=== PATIENT | female | born 1945 | race Native Hawaiian/Other Pacific Islander ===

== ENCOUNTER → 2016-07-29 | Day surgery (SDC) | payer MEDICARE, MEDICAID ==
[~2016-07-29] VITALS: Ht 154.9 cm; Wt 51.5 kg
[~2016-07-29] MED LIST: AMLO10 PO; ASPI-110 PO; ATOR40TA16 PO; CALCTAB70 PO; COQ-150C; DONE10TA7 PO; EPINEPHrine-Lidocaine/BSS (PF/SF) 4-120 mg/16 mL OPTH SYR RIGHT EYE ONE; GLUCTAB PO; HYALURONIDASE/LIDOCAINE/EPINEPHRINE/BUPIVACAINE 4.5 ML SYR RIGHT EYE ONE; HYALURONIDASE/LIDOCAINE/EPINEPHRINE/BUPIVACAINE 6 ML SYR RIGHT EYE ONE; LATA.005%O EACH EYE; LIDOCAINE HCL 1% 30 ML VIAL ONE; LOSA50TA PO; MIDAZOLAM HCL 2 MG/2 ML VIAL ONE; MULT-135 PO; NITR0.4S SL; OXYB10TA PO; PROPARACAINE HCL 0.5% OPHT SOLN 15 ML BTL RIGHT EYE ONE; PROPOFOL 200 MG/20 ML AMP ONE; QUIN1TAB11 PO; SODIUM CHLORID 0.9% 500 ML INJ 500 ML ONE; TOBRAMYCIN/DEXAMETHASONE OPTH OINT 3.5 GM TUBE ONE
[2016-07-29 07:40] VITALS: BP 147/92; PULSE 68; RESP 12; TEMP 98.3; O2SAT 95
[2016-07-29 07:45] VITALS: PULSE 68
[2016-07-29] MEDS: PHENYLEPHRINE HCL 10% OPTH SOLN 5 ML BTL RIGHT EYE SCH ×4 (07:55→08:10)
[2016-07-29] MEDS: TROPICAMIDE 1% OPHT SOLN 15 ML BTL RIGHT EYE SCH ×4 (07:55→08:10)
[2016-07-29] MEDS: FLURBIPROFEN 0.03% OPHT SOLN 2.5 ML BTL RIGHT EYE SCH ×4 (07:55→08:10)
[2016-07-29] MEDS: CYCLOPENTOLATE HCL 1% OPHT SOLN 2 ML BTL RIGHT EYE SCH ×4 (07:55→08:10)
[2016-07-29 09:03] VITALS: PULSE 82
[2016-07-29 10:50] VITALS: BP 140/90; PULSE 76; RESP 16; TEMP 98; O2SAT 95
--- NOTE | 2016-07-29 23:26 | MP ---
cc: KAYODE SALVADOR M.D. [facility] #[id number] DATE OF SURGERY 07/29/16 POSTOPERATIVE DIAGNOSIS: Visually significant cataract right eye. OPERATION: Phacoemulsification with posterior chamber lens implantation, right eye. SURGEON: Kayode Salvador MD ANESTHESIA: Retrobulbar with MAC. COMPLICATIONS: None. PROCEDURE: After informed consent was obtained, the patient was brought into the operative suite and placed on appropriate monitors by the Anesthesia Service. The patient had received a prior retrobulbar injection of local anesthetic by the Anesthesia Service in the holding area. The patient's operative eye was then prepped and draped in the usual sterile fashion. A wire lid speculum was placed. A paracentesis incision was made in the peripheral cornea with a 1 mm ratna keratome. The anterior chamber was filled with viscoelastic. The anterior chamber was then entered through a stepped, clear corneal incision using a sharp 3 mm ratna keratome. A circular tear capsulorrhexis was then made with a bent needle cystitome. Following hydrodissection of the lens nucleus with balanced saline, phaco-emulsification of the nucleus was performed using a modified chopping technique. The remaining cortex was removed with irrigation/aspiration. The prior two procedures were both performed using the handpieces of the [employer] phaco unit. The capsular bag was then filled with viscoelastic. The intraocular lens was then injected into the capsular bag and positioned. The type of intraocular lens and its power can be found elsewhere in this chart. The remaining viscoelastic was then removed from the anterior chamber with the IA handpiece. The anterior chamber was reformed with balanced saline. The wound was then closed securely with stromal hydration. It was found to be watertight to an intraocular pressure of at least 30 mmHg by palpation. A small amount of balanced salt solution was then removed through the paracentesis site and the intraocular pressure at the end of the case was approximately 20 by palpation. All drapes were then removed. TobraDex ointment was then placed in the eye, which was closed beneath a semi-pressure patch dressing. The patient tolerated this procedure well and left the operating room awake and alert. The patient is to follow-up in my office in the morning. MD EL Jj/ /10:05 AM /11:20 PM
== END | disposition home or self-care (01) ==
LOC: CSDC 07:00
PROVIDERS: ATTEND Optometrist Occupational Vision
DX: H25.11 Age-related nuclear cataract, right eye (principal)
CPT/HCPCS: 00142; 66984; J2250; J7040; V2632

== ENCOUNTER 2017-10-21 11:35 | Observation (INO) | payer MEDICARE, MEDICAID ==
[2017-10-21] VITALS (10 sets, daily range): BP systolic 131–179; BP diastolic 74–85; PULSE 63–87; RESP 16–19; TEMP 98–98.7; O2SAT 94–99
[~2017-10-21] VITALS: Ht 154.9 cm; Wt 56.0 kg
[~2017-10-21 11:35] MED LIST changes: -ASPI-110 PO; +ASPI1TAB57 PO; -DONE10TA7 PO; -EPINEPHrine-Lidocaine/BSS (PF/SF) 4-120 mg/16 mL OPTH SYR RIGHT EYE ONE; -HYALURONIDASE/LIDOCAINE/EPINEPHRINE/BUPIVACAINE 4.5 ML SYR RIGHT EYE ONE; -HYALURONIDASE/LIDOCAINE/EPINEPHRINE/BUPIVACAINE 6 ML SYR RIGHT EYE ONE; -LIDOCAINE HCL 1% 30 ML VIAL ONE; -MIDAZOLAM HCL 2 MG/2 ML VIAL ONE; -PROPARACAINE HCL 0.5% OPHT SOLN 15 ML BTL RIGHT EYE ONE; -PROPOFOL 200 MG/20 ML AMP ONE; -SODIUM CHLORID 0.9% 500 ML INJ 500 ML ONE; -TOBRAMYCIN/DEXAMETHASONE OPTH OINT 3.5 GM TUBE ONE
--- NOTE | 2017-10-21 11:52 | PD ---
HPI Chief Complaint: Chest Pain Time Seen by Provider: 11:48 Travel History International Travel<30 days: No Contact w/Intl Traveler<30days: No History of Present Illness HPI 71-year-old Kisw[place] woman with history of hypertension, possible previous HI, presents to the ER today brought in by EMS, daughter states that she started complaining of chest discomfort radiating to the jaw area, numbness around the lips and hands, all starting this morning after her was in the CAT scan getting evaluated. She was given several doses of aspirin and states that her chest pain has now resolved, she states that she feels some chest discomfort still but is not able to radiate. She reports shortness of breath as well. Modifying Factors: None Associated Signs & Symptoms: Chest discomfort, paresthesias in the lips and hands Risk Factors: Cardiac history PFSH Past Medical History Arthritis: Yes Asthma: No Autoimmune Disease: No Heart Rhythm Problems: No Cancer: Yes (BREAST CANCER) Cardiovascular Problems: Yes (HI 20+ YEARS) High Cholesterol: Yes Chest Pain: Yes Congestive Heart Failure: No COPD: No Cerebrovascular Accident: Yes (mild stroke 1992/1993 with residual) Diabetes: Yes (TYPE 2) Endocrine: No GERD: No Genitourinary: Yes (OVER ACTIVE BLADDER) Headaches: No Hepatitis: No Hiatal Hernia: No Hypertension: Yes Immune Disorder: No Musculoskeletal: Yes (ARTHRITIS) Psychiatric: No Reproductive: Yes (FIBROIDS) Respiratory: No Myocardial Infarction: Yes (HI 1994) Seizures: No Sleep Apnea: No Thyroid Disease: No Ulcer: No Past Surgical History Abdominal Surgery: No AICD: No Cardiac Surgery: No Ear Surgery: No Endocrine Surgery: No Eye Surgery: No Genitourinary Surgery: No Gynecologic Surgery: No Joint Replacement: No Oral Surgery: No Pacemaker: No Thoracic Surgery: Yes (left moduified radical mastectomy) Social History Alcohol Use: No Tobacco Use: No Substance Use: No Allergies-Medications (Allergen,Severity, Reaction): Coded Allergies: clonidine (Unverified Allergy, Severe, SEVERE HYPOTENSION, 10/21/17) hydrocodone (Unverified Allergy, Severe, Rash, 10/21/17) Reported Meds & Prescriptions Reported Meds & Active Scripts Active Reported Tradjenta (Linagliptin) 5 Mg Tab 5 Mg PO DAILY Accupril (Quinapril HCl) 20 Mg Tab 20 Mg PO BID Metformin ER (Metformin HCl) 500 Mg Nancy 500 Mg PO BID With evening meal Multiple Vitamin 1 Tab 1 Tab PO DAILY Labetalol (Labetalol HCl) 100 Mg Tab 100 Mg PO BID Calcium 500 +D (Calcium Carbonate-Cholecalciferol) 500-400 Mg-Unit Tab 1 Tab PO BID Coq-10 Tr (Coenzyme Q10 (Ubidecarenone)) 100 Mg Cap 200 Mg PO DAILY Xalatan Opth Drops (Latanoprost) 0.005% Drops 1 Drop EACH EYE HS Oxybutynin ER 24 HR (Oxybutynin Chloride) 10 Mg Tab 10 Mg PO DAILY Nitrostat SL (Nitroglycerin) 0.4 Mg Subl 0.4 Mg SL Q 5 MIN X 3 FOR CP 1 tablet under the tongue as needed for chest pain. Repeat every 5 minutes for a total of 3 DOSES or call 911 if NO relief. Atorvastatin (Atorvastatin Calcium) 40 Mg Tab 40 Mg PO HS Aspirin 81 (Aspirin) 81 Mg Tabdr 81 Mg PO DAILY Norvasc (Amlodipine Besylate) 10 Mg Tab 10 Mg PO DAILY Review of Systems Except as stated in HPI: all other systems reviewed are Neg Physical Exam Narrative GENERAL: Well-developed elderly [place] woman currently in mild distress. Awake and oriented 3. She is keeping her eyes closed, not looking at me during exam, but responding normally to her daughter who is translating. SKIN: Focused skin assessment warm/dry. HEAD: Atraumatic. Normocephalic. EYES: Pupils equal and round. No scleral icterus. No injection or drainage. ENT: No nasal bleeding or discharge. Mucous membranes pink and moist. NECK: Trachea midline. No JVD. CARDIOVASCULAR: Regular rate and rhythm. No murmur appreciated. Pulses are present and equal bilaterally. RESPIRATORY: No accessory muscle use. Clear to auscultation. Breath sounds equal bilaterally. GASTROINTESTINAL: Abdomen soft, non-tender, nondistended. Hepatic and splenic margins not palpable. MUSCULOSKELETAL: No obvious deformities. No clubbing. No cyanosis. No edema. NEUROLOGICAL: Awake and alert. No obvious cranial nerve deficits. Motor grossly within normal limits. Normal speech. PSYCHIATRIC: Appropriate mood and affect; insight and judgment normal. Data Data Last Documented VS Vital Signs Date Time Temp Pulse Resp B/P (MAP) Pulse Ox O2 Delivery O2 Flow Rate FiO2 10/21/17 12:45 65 10/21/17 12:45 18 99 Nasal Cannula 2.00 10/21/17 11:39 98.7 Orders Orders Electrocardiogram (10/21/17 ) Electrocardiogram (10/21/17 11:48) Ckmb (Isoenzyme) Profile (10/21/17 11:48) Complete Blood Count With Diff (10/21/17 11:48) Comprehensive Metabolic Panel (10/21/17 11:48) Magnesium (Mg) (10/21/17 11:48) Prothrombin Time / Inr (Pt) (10/21/17 11:48) Act Partial Throm Time (Ptt) (10/21/17 11:48) Troponin I (10/21/17 11:48) Ecg Monitoring (10/21/17 11:48) Bilateral Bp Monitoring (10/21/17 11:48) Iv Access Insert/Monitor (10/21/17 11:48) Oximetry (10/21/17 11:48) Oxygen Administration (10/21/17 11:48) Sodium Chloride 0.9% Flush (Ns Flush) (10/21/17 12:00) Chest, Pa & Lat (10/21/17 11:48) Admit Order (Ed Use Only) (10/21/17 13:11) Labs Laboratory Tests Test 10/21/17 11:50 White Blood Count 5.5 TH/MM3 Red Blood Count 4.27 MIL/MM3 Hemoglobin 12.1 GM/DL Hematocrit 36.1 % Mean Corpuscular Volume 84.7 FL Mean Corpuscular Hemoglobin 28.4 PG Mean Corpuscular Hemoglobin Concent 33.6 % Red Cell Distribution Width 14.8 % Platelet Count 320 TH/MM3 Mean Platelet Volume 9.0 FL Neutrophils (%) (Auto) 62.4 % Lymphocytes (%) (Auto) 25.7 % Monocytes (%) (Auto) 9.0 % Eosinophils (%) (Auto) 2.3 % Basophils (%) (Auto) 0.6 % Neutrophils # (Auto) 3.5 TH/MM3 Lymphocytes # (Auto) 1.4 TH/MM3 Monocytes # (Auto) 0.5 TH/MM3 Eosinophils # (Auto) 0.1 TH/MM3 Basophils # (Auto) 0.0 TH/MM3 CBC Comment DIFF FINAL Differential Comment Prothrombin Time 10.2 SEC Prothromb Time International Ratio 1.0 RATIO Activated Partial Thromboplast Time 21.3 SEC Blood Urea Nitrogen 28 MG/DL Creatinine 1.67 MG/DL Random Glucose 275 MG/DL Total Protein 6.2 GM/DL Albumin 2.6 GM/DL Calcium Level 8.5 MG/DL Magnesium Level 1.9 MG/DL Alkaline Phosphatase 69 U/L Aspartate Amino Transf (AST/SGOT) 26 U/L Alanine Aminotransferase (ALT/SGPT) 31 U/L Total Bilirubin 0.3 MG/DL Sodium Level 138 MEQ/L Potassium Level 3.8 MEQ/L Chloride Level 102 MEQ/L Carbon Dioxide Level 27.3 MEQ/L Anion Gap 9 MEQ/L Estimat Glomerular Filtration Rate 30 ML/MIN Total Creatine Kinase 84 U/L Troponin I LESS THAN 0.02 NG/ML MDM Medical Decision Making Medical Screen Exam Complete: Yes Emergency Medical Condition: Yes Medical Record Reviewed: Yes Interpretation(s) EKG shows NSR, no ST elevation or depression, and no arrhythmias. No significant T-wave inversions. Laboratory Tests Test 10/21/17 11:50 Monocytes (%) (Auto) 9.0 % (0.0-8.0) Activated Partial Thromboplast Time 21.3 SEC (24.3-30.1) Blood Urea Nitrogen 28 MG/DL (7-18) Creatinine 1.67 MG/DL (0.50-1.00) Random Glucose 275 MG/DL (74-106) Total Protein 6.2 GM/DL (6.4-8.2) Albumin 2.6 GM/DL (3.4-5.0) Estimat Glomerular Filtration Rate 30 ML/MIN (>89) Troponin I LESS THAN 0.02 NG/ML Last 24 hours Impressions Chest X-Ray 10/21/17 1148 Signed Impressions: Service Date/Time: Saturday, October 21, 2017 12:07 - CONCLUSION: Trace atelectasis of both bases. Otherwise negative. Emory Bettencourt MD Differential Diagnosis Dysrhythmias versus anxiety attack versus ACS versus metabolic issues versus dehydration Narrative Course EKG did not show any signs of acute ST changes. Cardiac enzymes are negative. Chest discomfort has subsided. At this point, my plan would be to admit the patient to chest pain center for further evaluation. Diagnosis Primary Impression: Chest pain Admitting Information Admitting Physician Requests: Admit Karo Reyes MD Oct 21, 2017 11:52
[2017-10-21] MEDS ORDERED: SODIUM CHLORIDE 0.9% FLUSH 10 ML FLUSH IVF PRN (12:00)
--- NOTE | 2017-10-21 12:27 | RADRPT ---
EXAM DATE/TIME: 10/21/2017 12:07 [facility] COMPARISON: No previous studies available for comparison. INDICATIONS : Pt has been vomiting and light headed. MEDICAL HISTORY : Carcinoma, breast. SURGICAL HISTORY : None. ENCOUNTER: Initial ACUITY: 1 day PAIN SCORE: 2/10 LOCATION: Bilateral chest FINDINGS: Trace atelectasis in both bases. No pneumonia demonstrated. No pleural effusion or pneumothorax. Surgical changes of the left breast noted. CONCLUSION: Trace atelectasis of both bases. Otherwise negative. Emory Bettencourt MD on October 21, 2017 at 12:25 Board Certified Radiologist. This report was verified electronically.
[2017-10-21] MEDS ORDERED: LABE100T2 PO (12:40)
[2017-10-21] MEDS ORDERED: CALC1TAB12 PO (12:40)
[2017-10-21] MEDS ORDERED: MULTTAB67 PO (12:40)
[2017-10-21] MEDS ORDERED: COQ-100C5 PO (12:40)
[2017-10-21 12:42] LABS: AUTOMATED NEUTROPHIL # 3.5 TH/MM3 (1.8-7.7); BASOPHIL % 0.6 % (0.0-2.0); EOSINOPHIL # 0.1 TH/MM3 (0-0.4); EOSINOPHIL % 2.3 % (0.0-4.0); HEMATOCRIT 36.1 % (35.0-46.0); HEMOGLOBIN 12.1 GM/DL (11.6-15.3); LYMPH % 25.7 % (9.0-44.0); LYMPHOCYTE # 1.4 TH/MM3 (1.0-4.8); MEAN CELL VOLUME 84.7 FL (80.0-100.0); MEAN CORPUSCULAR HEMOGLOBIN 28.4 PG (27.0-34.0); MEAN CORPUSCULAR HGB CONC 33.6 % (32.0-36.0); MONOCYTE # 0.5 TH/MM3 (0-0.9); NEUT % 62.4 % (16.0-70.0); PLATELET COUNT 320 TH/MM3 (150-450); RED BLOOD COUNT 4.27 MIL/MM3 (4.00-5.30); RED CELL DISTRIBUTION WIDTH 14.8 % (11.6-17.2); WHITE BLOOD COUNT 5.5 TH/MM3 (4.0-11.0)
[2017-10-21] MEDS ORDERED: METF500T4 PO (12:42)
[2017-10-21] MEDS ORDERED: ACCU20TA3 PO (12:42)
[2017-10-21] MEDS ORDERED: TRAD5TAB PO (12:43)
[2017-10-21 12:53] LABS: PROTHROMBIN TIME - PATIENT 10.2 SEC (9.8-11.6)
[2017-10-21 12:59] LABS: ALBUMIN 2.6 GM/DL (3.4-5.0); ALT (GPT) 31 U/L (10-53); AST (GOT) 26 U/L (15-37); BICARBONATE 27.3 MEQ/L (21.0-32.0); BLOOD UREA NITROGEN 28 MG/DL (7-18); CALCIUM 8.5 MG/DL (8.5-10.1); CHLORIDE 102 MEQ/L (98-107); CREATININE 1.67 MG/DL (0.50-1.00); GLOMERULAR FILTRATION RATE 30 ML/MIN (>89); GLUCOSE,RANDOM 275 MG/DL (74-106); MAGNESIUM 1.9 MG/DL (1.5-2.5); SODIUM (NA) 138 MEQ/L (136-145)
[2017-10-21 13:02] LABS: ALKALINE PHOSPHATASE 69 U/L (45-117); TOTAL BILIRUBIN ADULT 0.3 MG/DL (0.2-1.0); TOTAL PROTEIN 6.2 GM/DL (6.4-8.2); TROPONIN I LESS THAN 0.02 NG/ML (0.02-0.05)
[2017-10-21] MEDS ORDERED: AMLO10 PO (14:30)
[2017-10-21] MEDS ORDERED: ACETAMINOPHEN 500 MG CPLT PO PRN (14:45)
[2017-10-21] MEDS ORDERED: ONDANSETRON HCL 4 MG/2 ML VIAL IV PUSH PRN (14:45)
--- NOTE | 2017-10-21 15:05 | EKG ---
Date Performed: 10/21/2017 Time Performed: 11:41:02 PTAGE: 71 years EKG: Sinus rhythm MODERATE T-WAVE ABNORMALITY, CONSIDER ANTERIOR ISCHEMIA ABNORMAL ECG Nonspecific anterior apical T-w ave changes PREVIOUS TRACING : 01/26/2005 23.29 DOCTOR: Henry Lee Interpretating Date/Time 10/21/2017 15:04:13
--- NOTE | 2017-10-21 15:25 | HHI.HP ---
[facility] Primary Care Physician Alberto Booth MD Chief Complaint Chest pain History of Present Illness This is a 71-year-old female the presents to ED with family to be evaluated for chest discomfort. Patient does not speak Niuean but request that her daughter translate for her. Patient developed a heaviness throughout the entire chest this morning. She was nauseous and had 2 episodes of emesis and also was short of breath. Her daughter tried to help her walk back to the bedroom but the patient became very weak and she had to help her to the floor. Patient did not fall, she was helped to the floor slowly. At that time her daughter gave her a couple aspirin she started to feel better. 911 was already in route. While in the ambulance the discomfort recurred and states that she was given 2 more aspirin which also helped with the discomfort. She states that she was very short of breath, very weak, and nauseous. She has history of CAD. She had a cardiac catheterization January [address] Cheng that revealed distal circumflex having a 40-50% area of stenosis, RCA had multiple areas of 40% areas of stenosis, and LAD having mild but diffuse disease. Cannot recall having recent stress testing and is not currently followed by grain picker. Patient also has history of chronic renal insufficiency and follows Dr. Grewal. Currently no chest discomfort but is complaining of lower abdominal pain at this time. (Mauricio Morales) Review of Systems General: Patient denies fevers, chills, and recent travel. HEENT: Patient denies headache, sore throat, difficulty swallowing. Cardiovascular: Has the chest discomfort as mentioned above. Denies sensation of heart beating rapidly or irregularly. No syncope. Denies diaphoresis. Respiratory: She was short of breath. Denies shortness of breath or inspirational chest discomfort. Denies coughing wheezing or hemoptysis. GI: She was nauseous with 2 episodes of emesis that was nonbloody and nonbilious. She is now complaining of lower abdominal pain. Patient denies hematemesis, diarrhea, constipation, bloody stools. Musculoskeletal: Patient denies joint pain or edema. Denies calf pain or edema. Neurovascular: Patient denies numbness, tingling, weakness in extremities. Denies headache. Endocrine: Denies polyuria and polydipsia. Hematologic: Denies easy bruising. Skin: Denies rash or itching. (Mauricio Morales) Past Family Social History Allergies: Coded Allergies: clonidine (Unverified Allergy, Severe, SEVERE HYPOTENSION, 10/21/17) hydrocodone (Unverified Allergy, Severe, Rash, 10/21/17) Past Medical History Hyperlipidemia, hypertension, diabetes, CAD, Farrell's esophagus, breast cancer with mastectomy 15 years ago as well as 5 years ago. Questionable CVA 1990. Chronic renal insufficiency. 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 Reported Medications Reported Meds & Active Scripts Active Norvasc (Amlodipine Besylate) 10 Mg Tab 10 Mg PO DAILY Reported Tradjenta (Linagliptin) 5 Mg Tab 5 Mg PO DAILY Accupril (Quinapril HCl) 20 Mg Tab 20 Mg PO BID Metformin ER (Metformin HCl) 500 Mg Nancy 500 Mg PO BID With evening meal Multiple Vitamin 1 Tab 1 Tab PO DAILY Labetalol (Labetalol HCl) 100 Mg Tab 100 Mg PO BID Calcium 500 +D (Calcium Carbonate-Cholecalciferol) 500-400 Mg-Unit Tab 1 Tab PO BID Coq-10 Tr (Coenzyme Q10 (Ubidecarenone)) 100 Mg Cap 200 Mg PO DAILY Xalatan Opth Drops (Latanoprost) 0.005% Drops 1 Drop EACH EYE HS Oxybutynin ER 24 HR (Oxybutynin Chloride) 10 Mg Tab 10 Mg PO DAILY Nitrostat SL (Nitroglycerin) 0.4 Mg Subl 0.4 Mg SL Q 5 MIN X 3 FOR CP 1 tablet under the tongue as needed for chest pain. Repeat every 5 minutes for a total of 3 DOSES or call 911 if NO relief. Atorvastatin (Atorvastatin Calcium) 40 Mg Tab 40 Mg PO HS Aspirin 81 (Aspirin) 81 Mg Tabdr 81 Mg PO DAILY Active Ordered Medications Current Medications Medications (Trade) Dose Ordered Sig/Elen Route Start Time Stop Time Status Last Admin (NS Flush) 2 ml UNSCH PRN IVF 10/21/17 12:00 10/21/17 12:12 (Lipitor) 40 mg HS PO 10/21/17 21:00 (Trandate) 100 mg BID PO 10/21/17 21:00 (Xalatan 0.005% Opth Soln) 1 drop HS EACH EYE 10/21/17 21:00 (Prinivil) 20 mg BID PO 10/21/17 21:00 (Theragran) 1 tab DAILY PO 10/22/17 09:00 (Detrol La) 4 mg DAILY PO 10/22/17 09:00 (Norvasc) 10 mg DAILY PO 10/21/17 14:00 (Tylenol) 500 mg Q4H PRN PO 10/21/17 14:45 (Zofran Inj) 4 mg Q6H PRN IV PUSH 10/21/17 14:45 (Aspirin) 325 mg DAILY PO 10/22/17 09:00 Family History There is family CAD. Social History Non-smoker. Denies alcohol or illicit drug use. (Mauricio Morales) Physical Exam Vital Signs Vital Signs Date Time Temp Pulse Resp B/P (MAP) Pulse Ox O2 Delivery O2 Flow Rate FiO2 10/21/17 14:00 68 18 175/84 (114) 99 Nasal Cannula 2.00 10/21/17 13:00 64 18 131/78 (95) 98 Nasal Cannula 2.00 10/21/17 12:45 65 10/21/17 12:45 65 18 156/74 (101) 99 Nasal Cannula 2.00 10/21/17 11:39 98 Nasal Cannula 2.00 10/21/17 11:39 63 164/74 (104) 10/21/17 11:39 98.7 63 17 164/74 (104) 98 10/21/17 11:39 99 Nasal Cannula 2.00 Laboratory Laboratory Tests Test 10/21/17 11:50 White Blood Count 5.5 Red Blood Count 4.27 Hemoglobin 12.1 Hematocrit 36.1 Mean Corpuscular Volume 84.7 Mean Corpuscular Hemoglobin 28.4 Mean Corpuscular Hemoglobin Concent 33.6 Red Cell Distribution Width 14.8 Platelet Count 320 Mean Platelet Volume 9.0 Neutrophils (%) (Auto) 62.4 Lymphocytes (%) (Auto) 25.7 Monocytes (%) (Auto) 9.0 Eosinophils (%) (Auto) 2.3 Basophils (%) (Auto) 0.6 Neutrophils # (Auto) 3.5 Lymphocytes # (Auto) 1.4 Monocytes # (Auto) 0.5 Eosinophils # (Auto) 0.1 Basophils # (Auto) 0.0 CBC Comment DIFF FINAL Differential Comment Prothrombin Time 10.2 Prothromb Time International Ratio 1.0 Activated Partial Thromboplast Time 21.3 Blood Urea Nitrogen 28 Creatinine 1.67 Random Glucose 275 Total Protein 6.2 Albumin 2.6 Calcium Level 8.5 Magnesium Level 1.9 Alkaline Phosphatase 69 Aspartate Amino Transf (AST/SGOT) 26 Alanine Aminotransferase (ALT/SGPT) 31 Total Bilirubin 0.3 Sodium Level 138 Potassium Level 3.8 Chloride Level 102 Carbon Dioxide Level 27.3 Anion Gap 9 Estimat Glomerular Filtration Rate 30 Total Creatine Kinase 84 Troponin I LESS THAN 0.02 (Mauricio Morales) Physical Exam Well-nourished well-developed lady resting comfortably but expressing concern about pain in her lower abdomen Skin is warm and dry with good turgor Head normocephalic atraumatic Eyes pupils are dense equal with bilateral IOLs and distortion of the left pupil. Extraocular movements are intact and there are no injection in the conjunctiva Mouth mucous membranes are moist and well papillated no lesions Neck is supple with no JVD masses nodes or bruits Chest reveals significantly diminished breath sounds bilaterally but no rales wheezes or rhonchi The abdomen is slightly protuberant hepatospleno margins are not identified in the abdomen is tender over the suprapubic area but with no guarding or rebound Extremities reveal no clubbing cyanosis or edema Neurologically she is intact with intact cranial nerves and equal motion of all 4 extremities. (Henry Lee MD) Result Diagram: 10/21/17 1150 10/21/17 1150 Imaging Last 48 hours Impressions Chest X-Ray 10/21/17 1148 Signed Impressions: Service Date/Time: Saturday, October 21, 2017 12:07 - CONCLUSION: Trace atelectasis of both bases. Otherwise negative. Emory Bettencourt MD Course Initial EKG is sinus rhythm with nonspecific T-wave changes. (Mauricio Morales) Caprini VTE Risk Assessment Caprini VTE Risk Assessment: Mod/High Risk (score >= 2) Caprini Risk Assessment Model Point Value = 1 Point Value = 2 Point Value = 3 Point Value = 5 Age 41-60 Minor surgery BMI > 25 kg/m2 Swollen legs Varicose veins or History of unexplained or recurrent spontaneous Oral contraceptives or hormone replacement Sepsis (< 1 month) Serious lung disease, including pneumonia (< 1 month) Abnormal pulmonary function Acute myocardial infarction Congestive heart failure (< 1 month) History of inflammatory bowel disease Medical patient at bed rest Age 61-74 Arthroscopic surgery Major open surgery (> 45 min) Laparoscopic surgery (> 45 min) Malignancy Confined to bed (> 72 hours) Immobilizing plaster cast Central venous access Age >= 75 History of VTE Family history of VTE Factor V Leiden Prothrombin [id number] Lupus anticoagulant Anticardiolipin antibodies Elevated serum homocysteine Heparin-induced thrombocytopenia Other congenital or acquired thrombophilia Stroke (< 1 month) Elective arthroplasty Hip, pelvis, or leg fracture Acute spinal cord injury (< 1 month) Prophylaxis Regimen Total Risk Factor Score Risk Level Prophylaxis Regimen 0-1 Low Early ambulation 2 Moderate Order ONE of the following: *Sequential Compression Device (SCD) *Heparin 5000 units SQ BID 3-4 Higher Order ONE of the following medications: *Heparin 5000 units SQ TID *Enoxaparin/Lovenox 40 mg SQ daily (WT < 150 kg, CrCl > 30 mL/min) *Enoxaparin/Lovenox 30 mg SQ daily (WT < 150 kg, CrCl > 10-29 mL/min) *Enoxaparin/Lovenox 30 mg SQ BID (WT < 150 kg, CrCl > 30 mL/min) AND/OR *Sequential Compression Device (SCD) 5 or more Highest Order ONE of the following medications: *Heparin 5000 units SQ TID (Preferred with Epidurals) *Enoxaparin/Lovenox 40 mg SQ daily (WT < 150 kg, CrCl > 30 mL/min) *Enoxaparin/Lovenox 30 mg SQ daily (WT < 150 kg, CrCl > 10-29 mL/min) *Enoxaparin/Lovenox 30 mg SQ BID (WT < 150 kg, CrCl > 30 mL/min) AND *Sequential Compression Device (SCD) (Mauricio Morales) Assessment and Plan Assessment and Plan * Chest pain: Patient's symptoms are suggestive of coronary disease that may have worsened from her cardiac catheterization in 2004. She was seen by Dr. Lee of cardiology in the chest pain center. She will have a Lexiscan in the morning if serial cardiac enzymes and EKGs remain normal. It was explained to the patient's family and to the patient that it would not be that surprising if the stress test were to be abnormal and needing for further evaluation with possible cardiac catheterization. She is stable at this time. She and her family are agreeable to this plan. Patient should follow-up with grain picker after discharge as well as PCP and return to ED for other interval issues. * CAD: We will likely reassess with stress testing if her cardiac enzymes remain normal. * Diabetes: We will hold her diabetic medications specifically metformin as she may need contrast study. Patient will be on sliding scale insulin coverage and have diabetic diet. * Hyperlipidemia: Continue medication. * Hypertension: Continue medication. * History of Farrell's esophagus: We will continue her PPI. Patient is stable at this time. She and her family are agreeable to this plan. (Mauricio Morales) Mauricio Morales Oct 21, 2017 15:25 Henry Lee MD Oct 21, 2017 15:37
--- NOTE | 2017-10-21 15:40 | PD.CARD.PN ---
Subjective Subjective Remarks Patient was seen and examined together with advanced practitioner care plan and assessment were discussed. Physical examination was entered by myself other documentation is by the advantage practitioner. The patient seems more focused on her lower abdominal pain 10 on her chest pain that will be evaluated with a urinalysis as quickly as possible. Otherwise will continue to rule out using a chest pain protocol with consideration of a Lexiscan tomorrow if possible. The daughter who is a pharmacist indicates that they are not anxious to consider a repeat catheterization. Objective Medications Current Medications Medications (Trade) Dose Ordered Sig/Elen Route Start Time Stop Time Status Last Admin (NS Flush) 2 ml UNSCH PRN IVF 10/21/17 12:00 10/21/17 12:12 (Lipitor) 40 mg HS PO 10/21/17 21:00 (Trandate) 100 mg BID PO 10/21/17 21:00 (Xalatan 0.005% Opth Soln) 1 drop HS EACH EYE 10/21/17 21:00 (Prinivil) 20 mg BID PO 10/21/17 21:00 (Theragran) 1 tab DAILY PO 10/22/17 09:00 (Detrol La) 4 mg DAILY PO 10/22/17 09:00 (Norvasc) 10 mg DAILY PO 10/21/17 14:00 (Tylenol) 500 mg Q4H PRN PO 10/21/17 14:45 (Zofran Inj) 4 mg Q6H PRN IV PUSH 10/21/17 14:45 (Aspirin) 325 mg DAILY PO 10/22/17 09:00 Vital Signs / I&O Vital Signs Date Time Temp Pulse Resp B/P (MAP) Pulse Ox O2 Delivery O2 Flow Rate FiO2 10/21/17 15:26 98.1 72 19 179/85 (116) 97 10/21/17 14:00 68 18 175/84 (114) 99 Nasal Cannula 2.00 10/21/17 13:00 64 18 131/78 (95) 98 Nasal Cannula 2.00 10/21/17 12:45 65 10/21/17 12:45 65 18 156/74 (101) 99 Nasal Cannula 2.00 10/21/17 11:39 98 Nasal Cannula 2.00 10/21/17 11:39 63 164/74 (104) 10/21/17 11:39 98.7 63 17 164/74 (104) 98 10/21/17 11:39 99 Nasal Cannula 2.00 Laboratory Laboratory Tests Test 10/21/17 11:50 White Blood Count 5.5 TH/MM3 Red Blood Count 4.27 MIL/MM3 Hemoglobin 12.1 GM/DL Hematocrit 36.1 % Mean Corpuscular Volume 84.7 FL Mean Corpuscular Hemoglobin 28.4 PG Mean Corpuscular Hemoglobin Concent 33.6 % Red Cell Distribution Width 14.8 % Platelet Count 320 TH/MM3 Mean Platelet Volume 9.0 FL Neutrophils (%) (Auto) 62.4 % Lymphocytes (%) (Auto) 25.7 % Monocytes (%) (Auto) 9.0 % Eosinophils (%) (Auto) 2.3 % Basophils (%) (Auto) 0.6 % Neutrophils # (Auto) 3.5 TH/MM3 Lymphocytes # (Auto) 1.4 TH/MM3 Monocytes # (Auto) 0.5 TH/MM3 Eosinophils # (Auto) 0.1 TH/MM3 Basophils # (Auto) 0.0 TH/MM3 CBC Comment DIFF FINAL Differential Comment Prothrombin Time 10.2 SEC Prothromb Time International Ratio 1.0 RATIO Activated Partial Thromboplast Time 21.3 SEC Blood Urea Nitrogen 28 MG/DL Creatinine 1.67 MG/DL Random Glucose 275 MG/DL Total Protein 6.2 GM/DL Albumin 2.6 GM/DL Calcium Level 8.5 MG/DL Magnesium Level 1.9 MG/DL Alkaline Phosphatase 69 U/L Aspartate Amino Transf (AST/SGOT) 26 U/L Alanine Aminotransferase (ALT/SGPT) 31 U/L Total Bilirubin 0.3 MG/DL Sodium Level 138 MEQ/L Potassium Level 3.8 MEQ/L Chloride Level 102 MEQ/L Carbon Dioxide Level 27.3 MEQ/L Anion Gap 9 MEQ/L Estimat Glomerular Filtration Rate 30 ML/MIN Total Creatine Kinase 84 U/L Troponin I LESS THAN 0.02 NG/ML Imaging Last 24 hours Impressions Chest X-Ray 10/21/17 1148 Signed Impressions: Service Date/Time: Saturday, October 21, 2017 12:07 - CONCLUSION: Trace atelectasis of both bases. Otherwise negative. MD Rosa Wick Donald J. MD Oct 21, 2017 15:40
[2017-10-21 16:24] LABS: TROPONIN I LESS THAN 0.02 NG/ML (0.02-0.05)
[2017-10-21 17:43] LABS: BILIRUBIN, URINE NEG (NEG); BLOOD, URINE NEG (NEG); GLUCOSE,URINE 70 mg/dL (NEG); HYALINE CAST, URINE 2 /lpf (RARE); KETONE, URINE NEG (NEG); NITRITE,URINE NEG (NEG); PH, URINE 6.5 (5.0-8.5); URINE COLOR LIGHT-YELLOW (YELLW/STRAW); URINE LEUKOCYTE ESTERASE NEG (NEG)
[2017-10-21 19:54] LABS: TROPONIN I LESS THAN 0.02 NG/ML (0.02-0.05)
[2017-10-21] MEDS ORDERED: LATANOPROST 0.005% OPHT SOLN 2.5 ML BTL EACH EYE SCH (21:00)
[2017-10-21] MEDS ORDERED: ATORVASTATIN 40 MG TAB PO SCH (21:00)
[2017-10-21] MEDS: LISINOPRIL 20 MG TAB PO SCH (22:14)
[2017-10-21] MEDS: LABETALOL HCL 100 MG TAB PO SCH (22:15)
[2017-10-22] VITALS (8 sets, daily range): BP systolic 170–182; BP diastolic 75–80; PULSE 72–84; RESP 17–20; TEMP 98–98.6; O2SAT 92–96
[2017-10-22] MEDS: LISINOPRIL 20 MG TAB PO SCH (08:58)
[2017-10-22] MEDS ORDERED: MULTIVITAMIN TAB PO SCH (09:00)
[2017-10-22] MEDS ORDERED: TOLTERODINE TARTRATE 4 MG CAP LA PO SCH (09:00)
[2017-10-22] MEDS ORDERED: ASPIRIN 325 MG TAB PO SCH (09:00)
[2017-10-22] MEDS ORDERED: RAMIPRIL 5 MG CAP PO SCH (10:00)
[2017-10-22] MEDS ORDERED: REGADENOSON INJ 0.4 MG/5 ML SYR ONE (10:16)
--- NOTE | 2017-10-22 12:10 | RADRPT ---
EXAM DATE/TIME: 10/22/2017 09:59 [facility] COMPARISON: No previous studies available for comparison. INDICATIONS : Angina Myocardial infarction. DOSE: 25.4 mCi Tc99m Myoview at stress. 8.5 mCi Tc99m Myoview at rest. 0.4 mg Lexiscan STRESS SYMPTOMS: Shortness of breath, chest pressure, headache. EJECTION FRACTION: > 70% MEDICAL HISTORY : Hypertension. Diabetes mellitus type 2. Myocardial infarction. SURGICAL HISTORY : Left mastectomy. ENCOUNTER: Initial ACUITY: 1 day PAIN SCALE: 4/10 LOCATION: chest TECHNIQUE: The patient underwent pharmacologic stress with infusion of prescribed dose. Continuous ECG tracing was monitored during stress. Gated SPECT imaging was performed after stress and conventional SPECT i maging was performed at rest. The examination was performed on a SPECT/CT scanner, both attenuation and non-corrected datasets were reviewed. FINDINGS: DISTRIBUTION: The maximum perfused segment at stress is in the lateral wall. PERFUSION STUDY: The pattern of perfusion at stress is within normal limits. GATED STUDY: There is intact wall motion and thickening without hypokinetic or dyskinetic segments. CONCLUSION: Normal examination. RISK CATEGORY: Low risk Kandace Nuñez MD on October 22, 2017 at 12:06 Board Certified Radiologist. This report was verified electronically.
--- NOTE | 2017-10-22 12:30 | HHI.DS ---
Discharge Summary Admission Date Oct 21, 2017 at 13:13 Discharge Date: Oct 22, 2017 Admitting Diagnosis Chest pain (1) Atypical chest pain Diagnosis: Principal ICD Codes: R07.89 - Other chest pain Status: Resolved Procedures Last 48 hours Impressions Myocardial Perfusion Scan Nuc Med 10/22/17 0000 Signed Impressions: Service Date/Time: Sunday, October 22, 2017 09:59 - CONCLUSION: Normal examination. RISK CATEGORY: Low risk Kandace Nuñez MD Chest X-Ray 10/21/17 1148 Signed Impressions: Service Date/Time: Saturday, October 21, 2017 12:07 - CONCLUSION: Trace atelectasis of both bases. Otherwise negative. Emory Bettencourt MD Brief History 71 year old female with history of hypertension, diabetes, and hyperlipidemia presented to ER for further evaluation of chest pain. Admitted to chest pain center. ACS ruled out. Seen and evaluated by [facility] interface analyst. Lexiscan completed and unremarkable. Discharged home with follow up with PCP. discussed in length with her daughter who is agreeable for discharge. CBC/BMP: 10/21/17 1150 10/21/17 1150 Significant Findings Laboratory Tests Test 10/21/17 11:50 10/21/17 15:20 10/21/17 17:05 10/21/17 18:40 Monocytes (%) (Auto) 9.0 % (0.0-8.0) Activated Partial Thromboplast Time 21.3 SEC (24.3-30.1) Blood Urea Nitrogen 28 MG/DL (7-18) Creatinine 1.67 MG/DL (0.50-1.00) Random Glucose 275 MG/DL (74-106) Total Protein 6.2 GM/DL (6.4-8.2) Albumin 2.6 GM/DL (3.4-5.0) Estimat Glomerular Filtration Rate 30 ML/MIN (>89) Troponin I LESS THAN 0.02 NG/ML LESS THAN 0.02 NG/ML LESS THAN 0.02 NG/ML Urine Protein 300 mg/dL (NEG-TRACE) Urine Glucose (UA) 70 mg/dL (NEG) Pt Condition on Discharge: Good Discharge Disposition: Discharge Home Discharge Instructions DIET: Follow Instructions for: Heart Healthy Diet Activities you can perform: Regular-No Restrictions Arianne Dudley Oct 22, 2017 12:30
--- NOTE | 2017-10-22 12:30 | HHI.DCPOC ---
Discharge Care Plan Diagnosis: (1) Atypical chest pain Goals to Promote Your Health * To prevent worsening of your condition and complications * To maintain your health at the optimal level Directions to Meet Your Goals Take your medications as prescribed Follow your dietary instruction Follow activity as directed Keep your appointments as scheduled Take your immunizations and boosters as scheduled If your symptoms worsen call your PCP, if no PCP go to Urgent Care Center or Emergency Room Smoking is Dangerous to Your Health. Avoid second hand smoke Call the 24-hour hour crisis hotline for domestic abuse at Arianne Dudley Oct 22, 2017 12:30
--- NOTE | 2017-10-22 12:32 | TR ---
Date Performed: 10/22/2017 Time Performed: 10:30:59 DOCTOR: Khris Sanchez DRUG LIST: CLINICAL HISTORY: ANGINA REASON FOR TEST: REASON FOR ENDING: OBSERVATION: CONCLUSION: Lexiscan stress test was performed under standard four minute protocol. Radionuclid e was injected one minute prior to ending the test. No electrocardiographic abormalities were present to suggest ischemia. Nuclear imaging and interpretation are pending. COMMENTS:
--- NOTE | 2017-10-22 12:40 | EKG ---
Date Performed: 10/21/2017 Time Performed: 18:27:56 PTAGE: 71 years EKG: Sinus rhythm NONSPECIFIC T-WAVE ABNORMALITY BORDERLINE ECG WARNING: DATA QUALITY MAY AFFECT INTERPRETATION PREVIOUS TRACING : 10/21/2017 15.34 Since previous tracing, no significant change noted DOCTOR: Khris Sanchez Interpretating Date/Time 10/22/2017 12:39:59
--- NOTE | 2017-10-22 12:45 | EKG ---
Date Performed: 10/21/2017 Time Performed: 15:34:49 PTAGE: 71 years EKG: Sinus rhythm NONSPECIFIC T-WAVE ABNORMALITY BORDERLINE ECG Compared to PREVIOUS TRACING , T wave changes have improved. DOCTOR: Khris Sanchez Interpretating Date/Time 10/22/2017 12:43:39
[2017-10-22] MEDS: LABETALOL HCL 100 MG TAB PO SCH (12:48)
== END 2017-10-22 18:36 | disposition home or self-care (01) ==
LOC: NEPC 11:35 → NEDA 13:13 → NEPHCDU 17:58
PROVIDERS: ADMIT Internal Medicine Interventional Cardiology; ATTEND Internal Medicine Interventional Cardiology
DX: R07.89 Other chest pain (principal); R53.1 Weakness; R94.31 Abnormal electrocardiogram [ECG] [EKG]; I25.10 Atherosclerotic heart disease of native coronary artery without angina pectoris; I12.9 Hypertensive chronic kidney disease with stage 1 through stage 4 chronic kidney disease, or unspecified chronic kidney disease; N18.9 Chronic kidney disease, unspecified; E11.22 Type 2 diabetes mellitus with diabetic chronic kidney disease; E78.5 Hyperlipidemia, unspecified; E78.00 Pure hypercholesterolemia, unspecified; I25.2 Old myocardial infarction; K22.70 Barrett's esophagus without dysplasia; Z86.73 Personal history of transient ischemic attack (TIA), and cerebral infarction without residual deficits; Z85.3 Personal history of malignant neoplasm of breast; Z90.10 Acquired absence of unspecified breast and nipple
CPT/HCPCS: 71046; 78452; 80053; 81001; 82550; 82948; 83735; 84484; 85025; 85610; 85730; 93005; 93017; 99285; A9502; G0378; J2785